=== PATIENT | male | born 1940 | race Caucasian/White ===

== ENCOUNTER 2020-08-19 10:04 | Emergency (ER) | payer BC, OTHER ==
[2020-08-19 10:15] VITALS: BP 160/80; PULSE 73; TEMP 98.1; BMI 26.9
[2020-08-19] MEDS ORDERED: predniSONE 20 MG TABLET (UD) PO ONE (10:39)
[2020-08-19] MEDS ORDERED: INDOMETHACIN 50 MG CAPSULE PO ONE (10:39)
[2020-08-19] MEDS ORDERED: predniSONE 20 MG TABLET (UD) ONE (10:46)
[2020-08-19 11:02] LABS: BASO % 0.8 % (0-2.0); EOS % 1.6 % (0-4.5); HEMATOCRIT 41.9 % (35.4-49); HEMOGLOBIN 14.3 GM/dL (11.7-16.9); LYMPH % 22.8 % (8-40); MCH 31.3 pg (25.7-33.7); MEAN PLT VOLUME 7.6 fl (7.5-11.1); MONO % 12.9 % (3.8-10.2); NEUT % 61.9 % (42.8-82.8); PLATELET COUNT 201 K/MM3 (134-434); RBC 4.56 M/mm3 (4.00-5.60); RDW 13.7 % (11.9-15.9)
[2020-08-19 11:26] LABS: BLOOD UREA NITROGEN 12.9 mg/dL (7-18)
[2020-08-19 11:28] LABS: CALCIUM 9.2 mg/dL (8.5-10.1)
[2020-08-19 11:29] LABS: CREATININE 1.2 mg/dL (0.55-1.3); URIC ACID 6.6 mg/dL (2.6-7.2)
[2020-08-19 11:38] LABS: ERYTHROCYTE SEDIMENTATION RATE 15 mm/hr (0-20)
== END 2020-08-19 14:15 | disposition home or self-care (01) ==
LOC: JER 10:04
DX: M70.32 Other bursitis of elbow, left elbow (principal)
CPT/HCPCS: 36415; 73070-TC-LT-FY; 80048; 84550; 85025; 85651; 86140; 99284-25